=== PATIENT | male | born 1955 | race Caucasian/White ===

== ENCOUNTER 2020-01-21 09:09 | Inpatient (IN) | payer BC, OTHER ==
[~2020-01-21] VITALS: Ht 175.3 cm; Wt 142.9 kg
[2020-01-21] VITALS (11 sets, daily range): BP systolic 110–140; BP diastolic 63–78
[~2020-01-21 09:09] MED LIST: CLIN150C2 PO; FURO-61 PO; LEVO500T2 PO; LISI-600 PO; MELO-82 PO; POTA20PA40 PO; TOP100T PO; TOPI25TA PO
[2020-01-21] MEDS ORDERED: aspirin 81mg tab.chew PO ONE (09:15)
[2020-01-21 09:51] LABS: BASOPHILS # (AUTO) 0.1 X10'3 (0-0.2); BASOPHILS % (AUTO) 0.6 % (0-1); EOSINOPHILS # (AUTO) 0.3 X10'3 (0-0.9); EOSINOPHILS % (AUTO) 3.3 % (0-6); HEMATOCRIT 49.8 % (42.0-52.0); HEMOGLOBIN 16.7 g/dl (14.0-17.9); LYMPHOCYTES # (AUTO) 2.2 X10'3 (1.1-4.8); LYMPHOCYTES % (AUTO) 21.8 % (21-51); MEAN CORPUSCULAR HEMOGLOBIN 29.6 PG (27.0-31.0); MEAN CORPUSCULAR HGB CONC 33.6 g/dL (33.0-36.5); MONOCYTES # (AUTO) 0.7 X10'3 (0-0.9); MONOCYTES % (AUTO) 7.1 % (2-12); NEUTROPHILS # (AUTO) 6.7 X10'3 (1.8-7.7); NEUTROPHILS % (AUTO) 67.2 % (42-75); PLATELET COUNT 204 X10'3 (140-440); RED BLOOD COUNT 5.67 X10'6 (4.70-6.10); RED CELL DISTRIBUTION WIDTH 14.5 % (11.5-14.5); WHITE BLOOD COUNT 9.9 X10'3 (4.5-11.0)
[2020-01-21 10:01] LABS: ALANINE AMINOTRANSFERASE 32 U/L (12-78); ALBUMIN 3.8 G/DL (3.4-5.0); ALBUMIN/GLOBULIN RATIO 0.9 (1.1-1.5); ALKALINE PHOSPHATASE 113 IU/L (46-116); ANION GAP 8 (8-16); ASPARTATE AMINO TRANSFERASE 37 U/L (10-37); BILIRUBIN,TOTAL 0.4 MG/DL (0.1-1.0); BLOOD UREA NITROGEN 13 MG/DL (7-18); BUN/CREATININE RATIO 14.1 (5.4-32.0); CALCIUM 8.9 MG/DL (8.5-10.1); CHLORIDE 108 MMOL/L (99-107); CREATININE 0.92 MG/DL (0.60-1.10); GLUCOSE 110 MG/DL (70-104); POTASSIUM 3.9 MMOL/L (3.5-5.1); SODIUM 142 MMOL/L (135-145); TOTAL CARBON DIOXIDE 25.8 MMOL/L (24-32); eGFR 83 ML/MIN
--- NOTE | 2020-01-21 10:05 | NUR ---
critical value troponin 1.43, MD and RN aware
[2020-01-21] MEDS ORDERED: LISI40TA4 PO (10:36)
[2020-01-21] MEDS ORDERED: POTA10CA44 PO (10:36)
[2020-01-21] MEDS ORDERED: FURO20TA4 PO (10:36)
[2020-01-21] MEDS ORDERED: TOPI25TA49 PO (10:36)
[2020-01-21] MEDS ORDERED: CELE100C98 PO (10:36)
[2020-01-21] MEDS ORDERED: nitroGLYCERIN 1gm ointment UD TP ONE (11:05)
[2020-01-21] MEDS ORDERED: morphine 2 MG/ML inj. syringe IV PRN (11:55)
[2020-01-21] MEDS ORDERED: magnesium 2GM in 50ml NS 50 ML IV PRN (11:55)
[2020-01-21] MEDS ORDERED: magnesium Cl slow-release 64mg tablet PO PRN (11:55)
[2020-01-21] MEDS ORDERED: potassium CL 10mEq/100ml bag 100 ML IV PRN ×2 (11:55)
[2020-01-21] MEDS ORDERED: magnesium 4gm in 100ml NS 100 ML IV PRN (11:55)
[2020-01-21] MEDS ORDERED: ondansetron/PF 4mg/2ml inj IV PRN ×2 (11:55→15:15)
[2020-01-21] MEDS ORDERED: acetaminophen 325mg tablet PO PRN (11:55)
[2020-01-21] MEDS ORDERED: potassium Cl 20 mEq SR tablet PO PRN ×2 (11:55)
[2020-01-21] MEDS ORDERED: heparin 25,000 UNIT/250ml bag 250 ML IV SCH ×2 (11:56→12:06)
[2020-01-21] MEDS ORDERED: heparin 10,000 units/1 ML INJ IV PRN (12:00)
[2020-01-21] MEDS ORDERED: heparin 10,000 units/1 ML INJ IV ONE ×2 (12:00→12:05)
[2020-01-21 12:28] LABS: PARTIAL THROMBOPLASTIN TIME 31 SECONDS (22-32)
[2020-01-21] MEDS ORDERED: metoprolol tartrate 50mg tablet PO SCH (12:30)
[2020-01-21] MEDS ORDERED: metoprolol tartrate 25mg tablet PO SCH (12:48)
[2020-01-21] MEDS: atorvastatin 20mg tablet PO SCH (12:51)
[2020-01-21] MEDS: metoprolol tartrate 25mg tablet PO SCH ×2 (12:55→20:51)
[2020-01-21] MEDS ORDERED: fentaNYL/PF 50MCG/1 ML 2ML syringe ONE (13:01)
[2020-01-21] MEDS ORDERED: heparin 1,000unit/ml 10ml vial 10 ML ONE (13:01)
[2020-01-21] MEDS ORDERED: midazolam 2 mg/2 ml injection ONE (13:01)
[2020-01-21] MEDS ORDERED: LIDOcaine 1% (10mg/ml)w/preservative injection 20ml MDV ONE (13:01)
[2020-01-21] MEDS ORDERED: proCHLORperazine 10 MG/2 ml inj ONE (13:01)
[2020-01-21] MEDS ORDERED: verapamil 2.5 mg/ml inj IV ONE (13:01)
[2020-01-21] MEDS ORDERED: nitroGLYCERIN-Tridil 50MG/D5W 250 ML IV ONE (13:02)
[2020-01-21] MEDS ORDERED: iohexol 350MG/ML 100ml bottle IV ONE ×3 (13:02→14:14)
[2020-01-21] MEDS ORDERED: ticagrelor 90mg tablet ONE (14:01)
[2020-01-21] MEDS: NORMAL SALINE IV SCH ×2 (15:00→19:55)
[2020-01-21] MEDS ORDERED: HYDROcodone/acetaminophen 10/325mg tab PO PRN (15:15)
[2020-01-21] MEDS ORDERED: nitroGLYCERIN 0.4mg SUBLingual tab SL PRN (15:15)
[2020-01-21] MEDS ORDERED: proCHLORperazine 10 MG/2 ml inj IV PRN (15:15)
[2020-01-21] MEDS ORDERED: HYDROcodone/acetaminophen 5mg/325mg tablet PO PRN (15:15)
[2020-01-21] MEDS ORDERED: OXAZEpam 15mg capsule PO PRN (15:15)
[2020-01-21 15:17] LABS: CHOL/HDL RATIO 4.8 (0.00-4.99); CHOLESTEROL 160 MG/DL (0-200); HDL CHOLESTEROL 33 MG/DL (35-60); LDL CHOLESTEROL 111 MG/DL (50-100); TRIGLYCERIDES 151 MG/DL (20-135)
--- NOTE | 2020-01-21 15:28 | NUR ---
Received patient directly from [employer]. Radial vascular compression band to right wrist. Site clean and dry. Fluids running at 100 ml/hr per MD orders. Will continue to monitor.
--- NOTE | 2020-01-21 16:35 | NUR ---
PAGER ID: [phone] MESSAGE: Re: Celestino Muhammad [phone] Mufti mendoza discharge [facility]. S/P Cath. If approved by you. Please advise. Thank you. Elizabeth X [phone] Perez, patient to stay the night for observation
--- NOTE | 2020-01-21 18:10 | NUR ---
Patient in room PCU 3028. I have received report from FRANCESCO Medley and had the opportunity to ask questions and assume patient care.
--- NOTE | 2020-01-21 18:48 | NUR ---
Problems reprioritized. Patient report given, questions answered & plan of care reviewed with FRANCESCO Garcia.
[2020-01-21] MEDS: K and/or MAG REPLACEMENT MC SCH (20:00)
[2020-01-21] MEDS: ticagrelor 90mg tablet PO SCH (20:51)
[2020-01-21] MEDS: topiramate 25mg tablet PO SCH (21:12)
[2020-01-21] MEDS: furosemide 40mg/4ml inj IV SCH (22:14)
[2020-01-22 03:00] VITALS: BP 115/63
[2020-01-22 05:59] LABS: BASOPHILS % (AUTO) 0.2 % (0-1); EOSINOPHILS # (AUTO) 0.3 X10'3 (0-0.9); EOSINOPHILS % (AUTO) 2.7 % (0-6); HEMATOCRIT 43.6 % (42.0-52.0); HEMOGLOBIN 14.4 g/dl (14.0-17.9); LYMPHOCYTES # (AUTO) 1.8 X10'3 (1.1-4.8); LYMPHOCYTES % (AUTO) 16.1 % (21-51); MEAN CORPUSCULAR HEMOGLOBIN 29.1 PG (27.0-31.0); MEAN CORPUSCULAR VOLUME 88.1 FL (78-98); MEAN PLATELET VOLUME 11.5 FL (7.4-10.4); MONOCYTES % (AUTO) 9.1 % (2-12); NEUTROPHILS # (AUTO) 8.1 X10'3 (1.8-7.7); NEUTROPHILS % (AUTO) 71.9 % (42-75); PLATELET COUNT 193 X10'3 (140-440); RED BLOOD COUNT 4.95 X10'6 (4.70-6.10); RED CELL DISTRIBUTION WIDTH 14.5 % (11.5-14.5); WHITE BLOOD COUNT 11.3 X10'3 (4.5-11.0)
--- NOTE | 2020-01-22 06:01 | NUR ---
Problems reprioritized. Patient report given, questions answered & plan of care reviewed with FRANCESCO Medley.
[2020-01-22 06:21] LABS: ALBUMIN 3.2 G/DL (3.4-5.0); ANION GAP 10 (8-16); BLOOD UREA NITROGEN 11 MG/DL (7-18); BUN/CREATININE RATIO 12.2 (5.4-32.0); CALCIUM 8.4 MG/DL (8.5-10.1); CHLORIDE 107 MMOL/L (99-107); CHOL/HDL RATIO 4.8 (0.00-4.99); CHOLESTEROL 133 MG/DL (0-200); GLUCOSE 96 MG/DL (70-104); HDL CHOLESTEROL 28 MG/DL (35-60); LDL CHOLESTEROL 89 MG/DL (50-100); MAGNESIUM 1.9 MG/DL (1.5-2.4); POTASSIUM 3.9 MMOL/L (3.5-5.1); SODIUM 141 MMOL/L (135-145); TOTAL CARBON DIOXIDE 24.3 MMOL/L (24-32); TRIGLYCERIDES 166 MG/DL (20-135); eGFR 85 ML/MIN
--- NOTE | 2020-01-22 06:30 | NUR ---
Patient in room PCU 3028. I have received report from Radha MAYA and had the opportunity to ask questions and assume patient care.
[2020-01-22 06:52] LABS: LARGE PLATELETS FEW; PLATELET ESTIMATE NORMAL
[2020-01-22 07:00] VITALS: BP 131/71
[2020-01-22] MEDS: K and/or MAG REPLACEMENT MC SCH (08:00)
[2020-01-22] MEDS ORDERED: lisinopril 20mg tablet PO SCH (08:00)
[2020-01-22] MEDS: topiramate 25mg tablet PO SCH (08:10)
[2020-01-22] MEDS: furosemide 40mg/4ml inj IV SCH (08:11)
[2020-01-22] MEDS: ticagrelor 90mg tablet PO SCH (08:12)
[2020-01-22 08:13] VITALS: BP_SYST 131
[2020-01-22] MEDS: metoprolol tartrate 25mg tablet PO SCH (08:13)
[2020-01-22] MEDS: atorvastatin 20mg tablet PO SCH (08:13)
[2020-01-22] MEDS ORDERED: aspirin 81mg tab.chew PO SCH (08:30)
--- NOTE | 2020-01-22 10:00 | NUR ---
AMB 600 FEET ON RA WITH SBA. SLIGHT SOB NOTED, DENIES CHEST PAIN.
[2020-01-22] MEDS ORDERED: ASPI-1265 PO (10:14)
[2020-01-22] MEDS ORDERED: ATOR20TA66 PO (10:14)
[2020-01-22] MEDS ORDERED: TICA90TA PO (10:14)
[2020-01-22] MEDS ORDERED: METO-395 PO (10:14)
--- NOTE | 2020-01-22 11:45 | NUR ---
Patient stable for discharge per MD. Education and discharge instructions provided to patient. All questions and concerns addressed. New medications faxed to [facility] [address]. Called and spoke with Dr. Murphy office, per staff, they will call and schedule with patient post discharge. PIV removed from right arm, catheter intact. Tele monitor removed and returned to outbound telemarketer. Patient transported off unit via wheel chair by staff to private vehicle.
== END 2020-01-22 11:45 | disposition home or self-care (01) | DRG 247 ==
LOC: ER 09:10 → ED HOLD 11:52 → PCU 3S 14:49
PROVIDERS: ADMIT Internal Medicine; ATTEND Internal Medicine
PROC: 4A023N7 Measurement of Cardiac Sampling and Pressure, Left Heart, Percutaneous Approach (ICD-10-PCS; principal; 2020-01-21)
PROC: 027136Z Dilation of Coronary Artery, Two Arteries with Three Drug-eluting Intraluminal Devices, Percutaneous Approach (ICD-10-PCS; 2020-01-21)
PROC: B2151ZZ Fluoroscopy of Left Heart using Low Osmolar Contrast (ICD-10-PCS; 2020-01-21)
PROC: B2111ZZ Fluoroscopy of Multiple Coronary Arteries using Low Osmolar Contrast (ICD-10-PCS; 2020-01-21)
DX: I21.4 Non-ST elevation (NSTEMI) myocardial infarction (principal); I50.32 Chronic diastolic (congestive) heart failure; Z68.42 Body mass index [BMI] 45.0-49.9, adult; E78.5 Hyperlipidemia, unspecified; E66.01 Morbid (severe) obesity due to excess calories; E78.00 Pure hypercholesterolemia, unspecified; I11.0 Hypertensive heart disease with heart failure; Z87.891 Personal history of nicotine dependence
CPT/HCPCS: 93306; 93458; 99285; C9600; 36415; 71045; 80048; 80053; 80061; 83735; 83880; 84484; 85025; 85610; 85730; 87081; 93005; 99152; 99153; A4620; C1725; C1751; C1769; C1874; C1894; G0378; J0780; J1644; J1940; J2001; J2250; J3010; J3490; J7030; Q9967

== ENCOUNTER 2023-10-31 09:15 | Inpatient (IN) | payer MEDICARE, OTHER ==
[~2023-10-31] VITALS: Ht 175.3 cm; Wt 134.7 kg
[~2023-10-31 09:15] MED LIST changes: +ASPI-1265 PO; +ATOR20TA PO; +CELE-193 PO; -CLIN150C2 PO; +FURO-150 PO; -FURO-61 PO; -LEVO500T2 PO; -LISI-600 PO; +LISI40TA13 PO; -MELO-82 PO; +METO-384 PO; +NITR0.4T51 SL; +POTA-192 PO; -POTA20PA40 PO; +TICA90TA2 PO; -TOP100T PO; -TOPI25TA PO; +TOPI25TA15 PO
[2023-10-31] MEDS ORDERED: aspirin 81mg tab.chew PO ONE (10:10)
[2023-10-31] MEDS ORDERED: nitroGLYCERIN 0.4mg SUBLingual tab SL PRN (10:10)
[2023-10-31 10:41] LABS: BASOPHILS % (AUTO) 0.2 % (0-1); EOSINOPHILS # (AUTO) 0.2 X10'3 (0-0.9); EOSINOPHILS % (AUTO) 0.9 % (0-6); HEMATOCRIT 52.1 % (42.0-52.0); LYMPHOCYTES # (AUTO) 2.7 X10'3 (1.1-4.8); LYMPHOCYTES % (AUTO) 15.8 % (21-51); MEAN CORPUSCULAR HEMOGLOBIN 29.5 PG (27.0-31.0); MEAN CORPUSCULAR HGB CONC 32.7 g/dL (33.0-36.5); MEAN CORPUSCULAR VOLUME 90.3 FL (78-98); MEAN PLATELET VOLUME 11.1 FL (7.4-10.4); MONOCYTES # (AUTO) 1.3 X10'3 (0-0.9); MONOCYTES % (AUTO) 7.9 % (2-12); NEUTROPHILS # (AUTO) 12.8 X10'3 (1.8-7.7); NEUTROPHILS % (AUTO) 75.2 % (42-75); PLATELET COUNT 233 X10'3 (140-440); RED BLOOD COUNT 5.77 X10'6 (4.70-6.10); RED CELL DISTRIBUTION WIDTH 14.8 % (11.5-14.5); WHITE BLOOD COUNT 17.1 X10'3 (4.5-11.0)
[2023-10-31 10:44] LABS: BILIRUBIN,URINE NEGATIVE (Neg); CLARITY,URINE CLEAR (Clear); COLOR,URINE YELLOW (Yellow); GLUCOSE, URINE NEGATIVE (Neg); KETONES,URINE NEGATIVE (Neg); LEUKOCYTE ESTERASE ,URINE NEGATIVE (Neg); NITRITES, URINE NEGATIVE (Neg); OCCULT BLOOD,URINE TRACE-INTACT (Neg); PROTEIN,URINE TRACE mg/dl (Neg); UROBILINOGEN,URINE 0.2 E.U/dL (0.2-1.0)
[2023-10-31] MEDS ORDERED: diltiazem 5mg/ml 5ml inj. IV ONE ×2 (10:45→13:35)
[2023-10-31] MEDS ORDERED: furosemide 10 MG/1 ML 10ml inj IV ONE (10:45)
[2023-10-31 10:57] LABS: UA COLLECTION TYPE CLN CATCH MIDSTREAM
[2023-10-31 11:00] LABS: BACTERIA,URINE NONE SEEN /HPF (Neg); RBC,URINE 0-2 /HPF (0-2); SQUAMOUS EPITHELIAL CELL,UR NONE SEEN /LPF (FEW); WBC,URINE 0-4 /HPF (0-4)
[2023-10-31 11:04] LABS: ALANINE AMINOTRANSFERASE 119 U/L (12-78); ALBUMIN 3.4 G/DL (3.4-5.0); ALKALINE PHOSPHATASE 62 IU/L (46-116); ANION GAP 9 (8-16); ASPARTATE AMINO TRANSFERASE 48 U/L (10-37); BILIRUBIN,TOTAL 0.6 MG/DL (0.1-1.0); BLOOD UREA NITROGEN 17 MG/DL (7-18); BUN/CREATININE RATIO 19.8 (10.0-20.0); CALCIUM 8.6 MG/DL (8.5-10.1); CHLORIDE 106 MMOL/L (99-107); CREATININE 0.86 MG/DL (0.60-1.10); GLUCOSE 160 MG/DL (70-104); POTASSIUM 4.3 MMOL/L (3.5-5.1); SODIUM 142 MMOL/L (135-145); TOTAL CARBON DIOXIDE 27.2 MMOL/L (24-32); TOTAL PROTEIN 6.7 G/DL (6.4-8.2); eCRCL 83 ML/MIN; eGFR 89 ML/MIN
[2023-10-31 11:08] LABS: PRO BRAIN NATRIURETIC PEPTIDE 1615 PG/ML (0-125)
[2023-10-31] MEDS ORDERED: APIX5TAB3 PO (11:13)
[2023-10-31] MEDS ORDERED: METO-467 PO (11:14)
[2023-10-31 11:37] LABS: D-DIMER 1.03 MG/L FEU (0-0.50)
[2023-10-31] MEDS ORDERED: metoprolol tartrate 1mg/ml inj IV ONE (12:05)
[2023-10-31 12:14] LABS: TOTAL CELLS COUNTED 100
[2023-10-31 12:15] LABS: PLATELET ESTIMATE NORMAL
[2023-10-31 12:16] LABS: GIANT PLATELET FEW; LARGE PLATELETS FEW
[2023-10-31] MEDS ORDERED: iohexol 350MG/ML 100ml bottle IV ONE (12:33)
[2023-10-31 13:22] LABS: APTT 29 SECONDS (22-32); INR 1.1 INR; PROTHROMBIN TIME 11.8 SECONDS (9.0-12.0)
[2023-10-31] MEDS ORDERED: magnesium hydroxide 30ml (MOM) UD suspension PO PRN (13:55)
[2023-10-31] MEDS ORDERED: magnesium 2GM in 50ml NS 50 ML IV PRN (13:55)
[2023-10-31] MEDS ORDERED: HYDROmorphone inj. 0.5 MG/0.5 ML DISP.SYRIN IV PRN (13:55)
[2023-10-31] MEDS ORDERED: ondansetron/PF 4mg/2ml inj IV PRN (13:55)
[2023-10-31] MEDS ORDERED: acetaminophen 325mg tablet PO PRN ×2 (13:55)
[2023-10-31] MEDS ORDERED: mag hydrox/Alum hydrox/simeth 30ml oral suspension PO PRN (13:55)
[2023-10-31] MEDS ORDERED: potassium Cl 40MEQ/1/2NS 520ml 520 ML IV PRN (13:55)
[2023-10-31] MEDS ORDERED: diltiazem-NS 100mg/100ml 100 ML IV SCH (13:55)
[2023-10-31] MEDS ORDERED: potassium Cl 20 mEq SR tablet PO PRN ×2 (13:55)
[2023-10-31] MEDS ORDERED: HYDROcodone/acetaminophen 5mg/325mg tablet PO PRN (13:55)
[2023-10-31] MEDS ORDERED: PERFLUTREN PROTEIN-A MICROSPHR (Optison) 0.22 MG/ML 3ML VIAL IV ONE (13:55)
[2023-10-31] MEDS ORDERED: magnesium 4gm in 100ml NS 100 ML IV PRN (13:55)
[2023-10-31] MEDS ORDERED: HYDROmorphone/PF 0.2 MG/ML SYRINGE IV PRN (13:55)
[2023-10-31] MEDS ORDERED: HYDROcodone/acetaminophen 10/325mg tab PO PRN (13:55)
[2023-10-31] MEDS ORDERED: magnesium Cl slow-release 64mg tablet PO PRN (13:55)
[2023-10-31] MEDS ORDERED: FURO-150 PO (15:27)
[2023-10-31 17:05] LABS: CHOL/HDL RATIO 3.3 (0.00-4.99); CHOLESTEROL 153 MG/DL (0-200); HDL CHOLESTEROL 46 MG/DL (35-60); LDL CHOLESTEROL 83 MG/DL (50-100); THYROID STIMULATING HORMONE 1.62 ulU/ml (0.34-4.50); TRIGLYCERIDES 122 MG/DL (20-135)
[2023-10-31 17:09] LABS: HEMOGLOBIN A1C 6.5 % (4.5-6.2)
[2023-10-31] MEDS ORDERED: amiodarone 150mg/dext, iso-os 100 ML IV ONE (17:50)
[2023-10-31] MEDS ORDERED: metoprolol tartrate 50mg tablet PO ONE (18:10)
[2023-10-31] MEDS: amiodarone/D5 360MG/200ML BAG 200 ML IV SCH (18:39)
[2023-10-31] MEDS: CefTRIAXone/D5W-Rocephin 1gm 50 ML IV SCH (19:17)
[2023-10-31] MEDS: metoprolol tartrate 50mg tablet PO SCH (20:00)
[2023-10-31] MEDS: K and/or MAG REPLACEMENT MC SCH (20:00)
[2023-10-31] MEDS: apixaban 5mg tablet PO SCH (20:03)
[2023-10-31] MEDS: docusate sod 100mg capsule PO SCH (20:03)
[2023-10-31] MEDS: furosemide 40mg/4ml inj IV SCH (20:04)
[2023-10-31 22:41] VITALS: BP 128/84; PULSE 67; RESP 19; TEMP 98.5; O2SAT 95
[2023-10-31 23:39] VITALS: RESP 17; O2SAT 96
[2023-11-01] VITALS (16 sets, daily range): BP systolic 118–151; BP diastolic 82–122; PULSE 101–143; RESP 10–25; TEMP 97.5–98.7; O2SAT 94–98
[2023-11-01] MEDS: amiodarone/D5 360MG/200ML BAG 200 ML IV SCH ×3 (00:07→21:17)
[2023-11-01] MEDS: docusate sod 100mg capsule PO SCH ×2 (08:00→21:10)
[2023-11-01] MEDS: CefTRIAXone/D5W-Rocephin 1gm 50 ML IV SCH (08:00)
[2023-11-01] MEDS: furosemide 40mg/4ml inj IV SCH ×2 (08:00→21:09)
[2023-11-01] MEDS: K and/or MAG REPLACEMENT MC SCH ×2 (08:00→20:00)
[2023-11-01] MEDS: metoprolol tartrate 50mg tablet PO SCH ×2 (08:00→21:15)
[2023-11-01] MEDS ORDERED: metoprolol tartrate 50mg tablet PO ONE (09:05)
[2023-11-01 09:41] LABS: APTT 23 SECONDS (22-32); INR 1.1 INR
[2023-11-01 09:48] LABS: PROTHROMBIN TIME 11.3 SECONDS (9.0-12.0)
[2023-11-01] MEDS: apixaban 5mg tablet PO SCH ×2 (10:35→21:10)
[2023-11-01 12:23] LABS: ALANINE AMINOTRANSFERASE 95 U/L (12-78); ALBUMIN 3.1 G/DL (3.4-5.0); ALBUMIN/GLOBULIN RATIO 0.9 (1.1-1.5); ALKALINE PHOSPHATASE 60 IU/L (46-116); ANION GAP 10 (8-16); ASPARTATE AMINO TRANSFERASE 36 U/L (10-37); BILIRUBIN,TOTAL 0.4 MG/DL (0.1-1.0); BLOOD UREA NITROGEN 16 MG/DL (7-18); BUN/CREATININE RATIO 19.5 (10.0-20.0); CHLORIDE 103 MMOL/L (99-107); CREATININE 0.82 MG/DL (0.60-1.10); GLUCOSE 136 MG/DL (70-104); MAGNESIUM 2.2 MG/DL (1.5-2.4); PHOSPHORUS 4.6 MG/DL (2.3-4.5); SODIUM 141 MMOL/L (135-145); TOTAL CARBON DIOXIDE 28.2 MMOL/L (24-32); TOTAL PROTEIN 6.6 G/DL (6.4-8.2); eCRCL 87 ML/MIN; eGFR > 90 ML/MIN
[2023-11-01] MEDS ORDERED: insulin Lispro (HumaLOG) vial - multi-dose SQ SCH (13:55)
[2023-11-01] MEDS ORDERED: DEXTROSE 15 GM of carb/4 tabs (each vial/BOTTLE has 4 tablets) PO PRN ×2 (13:55)
[2023-11-01] MEDS ORDERED: glucagon, human recombinant 1mg kit SUBCUT PRN (13:55)
[2023-11-01] MEDS ORDERED: dextrose 50%-water 50ml dispensing syringe IV PRN ×2 (13:55)
[2023-11-01] MEDS ORDERED: nitroGLYCERIN 0.4mg SUBLingual tab SL PRN (14:00)
[2023-11-01] MEDS: insulin glargine (Lantus) pen - multi-dose SQ SCH (21:00)
[2023-11-01] MEDS: atorvastatin 20mg tablet PO SCH (21:16)
[2023-11-01] MEDS: lisinopril 20mg tablet PO SCH (21:16)
[2023-11-02] VITALS (11 sets, daily range): BP systolic 115–151; BP diastolic 84–105; PULSE 83–126; RESP 12–21; TEMP 97.3–97.9; O2SAT 94–96
[2023-11-02] MEDS: K and/or MAG REPLACEMENT MC SCH ×2 (08:00→20:00)
[2023-11-02 08:09] LABS: APTT 28 SECONDS (22-32); INR 1.1 INR; PROTHROMBIN TIME 11.4 SECONDS (9.0-12.0)
[2023-11-02 08:16] LABS: BASOPHILS # (AUTO) 0.1 X10'3 (0-0.2); BASOPHILS % (AUTO) 0.5 % (0-1); EOSINOPHILS # (AUTO) 0.2 X10'3 (0-0.9); EOSINOPHILS % (AUTO) 1.3 % (0-6); HEMATOCRIT 52.5 % (42.0-52.0); LYMPHOCYTES # (AUTO) 2.7 X10'3 (1.1-4.8); LYMPHOCYTES % (AUTO) 16.6 % (21-51); MEAN CORPUSCULAR HEMOGLOBIN 29.2 PG (27.0-31.0); MEAN CORPUSCULAR HGB CONC 32.4 g/dL (33.0-36.5); MEAN CORPUSCULAR VOLUME 90.3 FL (78-98); MEAN PLATELET VOLUME 10.7 FL (7.4-10.4); MONOCYTES # (AUTO) 1.2 X10'3 (0-0.9); MONOCYTES % (AUTO) 7.6 % (2-12); NEUTROPHILS # (AUTO) 12.1 X10'3 (1.8-7.7); PLATELET COUNT 215 X10'3 (140-440); RED BLOOD COUNT 5.81 X10'6 (4.70-6.10); RED CELL DISTRIBUTION WIDTH 14.7 % (11.5-14.5); WHITE BLOOD COUNT 16.3 X10'3 (4.5-11.0)
[2023-11-02 08:20] LABS: ALANINE AMINOTRANSFERASE 77 U/L (12-78); ALBUMIN/GLOBULIN RATIO 0.8 (1.1-1.5); ALKALINE PHOSPHATASE 61 IU/L (46-116); ANION GAP 7 (8-16); ASPARTATE AMINO TRANSFERASE 30 U/L (10-37); BILIRUBIN,TOTAL 0.6 MG/DL (0.1-1.0); BLOOD UREA NITROGEN 19 MG/DL (7-18); BUN/CREATININE RATIO 22.4 (10.0-20.0); CHLORIDE 103 MMOL/L (99-107); CREATININE 0.85 MG/DL (0.60-1.10); GLUCOSE 141 MG/DL (70-104); MAGNESIUM 2.2 MG/DL (1.5-2.4); PHOSPHORUS 4.2 MG/DL (2.3-4.5); POTASSIUM 3.6 MMOL/L (3.5-5.1); SODIUM 141 MMOL/L (135-145); TOTAL CARBON DIOXIDE 31.5 MMOL/L (24-32); TOTAL PROTEIN 6.6 G/DL (6.4-8.2); eCRCL 84 ML/MIN; eGFR 90 ML/MIN
[2023-11-02] MEDS: metoprolol tartrate 50mg tablet PO SCH ×2 (08:50→20:08)
[2023-11-02] MEDS: apixaban 5mg tablet PO SCH (08:50)
[2023-11-02] MEDS: aspirin 81mg tab.chew PO SCH (08:50)
[2023-11-02] MEDS: docusate sod 100mg capsule PO SCH ×2 (08:50→20:12)
[2023-11-02] MEDS: lisinopril 20mg tablet PO SCH (08:51)
[2023-11-02] MEDS: furosemide 40mg/4ml inj IV SCH ×2 (08:52→20:07)
[2023-11-02 09:06] LABS: OCCULT BLOOD STOOL POSITIVE (Neg)
[2023-11-02] MEDS: amiodarone/D5 360MG/200ML BAG 200 ML IV SCH (10:14)
[2023-11-02] MEDS: amiodarone 200mg tablet PO SCH ×2 (12:41→20:08)
[2023-11-02] MEDS ORDERED: PEG 3350/Na sulf,bicarb,Cl/KCl oral sol 4 liter bottle PO ONE (14:00)
[2023-11-02] MEDS: CefTRIAXone/D5W-Rocephin 1gm 50 ML IV SCH (14:32)
[2023-11-02] MEDS: insulin glargine (Lantus) pen - multi-dose SQ SCH (21:00)
[2023-11-02] MEDS: atorvastatin 20mg tablet PO SCH (21:15)
[2023-11-03] VITALS (12 sets, daily range): BP systolic 106–154; BP diastolic 57–102; PULSE 68–124; RESP 11–24; TEMP 97.5–98.1; O2SAT 93–97
[2023-11-03] MEDS ORDERED: PEG 3350/Na sulf,bicarb,Cl/KCl oral sol 4 liter bottle PO ONE (06:00)
[2023-11-03] MEDS: K and/or MAG REPLACEMENT MC SCH ×2 (08:00→20:32)
[2023-11-03] MEDS: docusate sod 100mg capsule PO SCH ×2 (08:00→20:00)
[2023-11-03] MEDS: CefTRIAXone/D5W-Rocephin 1gm 50 ML IV SCH (08:02)
[2023-11-03] MEDS: metoprolol tartrate 50mg tablet PO SCH (08:08)
[2023-11-03] MEDS: aspirin 81mg tab.chew PO SCH (08:08)
[2023-11-03] MEDS: lisinopril 20mg tablet PO SCH (08:09)
[2023-11-03] MEDS: furosemide 40mg/4ml inj IV SCH ×2 (08:09→20:34)
[2023-11-03] MEDS: amiodarone 200mg tablet PO SCH ×2 (08:09→20:24)
[2023-11-03 09:28] LABS: MEAN CORPUSCULAR HEMOGLOBIN 29.6 PG (27.0-31.0)
[2023-11-03 09:31] LABS: BASOPHILS # (AUTO) 0.1 X10'3 (0-0.2); BASOPHILS % (AUTO) 0.7 % (0-1); EOSINOPHILS # (AUTO) 0.2 X10'3 (0-0.9); EOSINOPHILS % (AUTO) 0.8 % (0-6); HEMATOCRIT 56.9 % (42.0-52.0); LYMPHOCYTES # (AUTO) 2.7 X10'3 (1.1-4.8); LYMPHOCYTES % (AUTO) 14.5 % (21-51); MEAN CORPUSCULAR HGB CONC 32.9 g/dL (33.0-36.5); MEAN CORPUSCULAR VOLUME 89.7 FL (78-98); MEAN PLATELET VOLUME 11.4 FL (7.4-10.4); MONOCYTES # (AUTO) 1.4 X10'3 (0-0.9); MONOCYTES % (AUTO) 7.7 % (2-12); NEUTROPHILS # (AUTO) 14.2 X10'3 (1.8-7.7); NEUTROPHILS % (AUTO) 76.3 % (42-75); PLATELET COUNT 232 X10'3 (140-440); RED BLOOD COUNT 6.35 X10'6 (4.70-6.10); RED CELL DISTRIBUTION WIDTH 15.1 % (11.5-14.5); WHITE BLOOD COUNT 18.6 X10'3 (4.5-11.0)
[2023-11-03 09:41] LABS: ALANINE AMINOTRANSFERASE 89 U/L (12-78); ALBUMIN 3.6 G/DL (3.4-5.0); ALKALINE PHOSPHATASE 73 IU/L (46-116); ANION GAP 7 (8-16); ASPARTATE AMINO TRANSFERASE 47 U/L (10-37); BLOOD UREA NITROGEN 18 MG/DL (7-18); BUN/CREATININE RATIO 18.2 (10.0-20.0); C-REACTIVE PROTEIN 0.15 MG/DL (0.0-0.5); CALCIUM 8.9 MG/DL (8.5-10.1); CHLORIDE 101 MMOL/L (99-107); CREATININE 0.99 MG/DL (0.60-1.10); GLUCOSE 116 MG/DL (70-104); MAGNESIUM 2.1 MG/DL (1.5-2.4); PHOSPHORUS 3.9 MG/DL (2.3-4.5); POTASSIUM 3.8 MMOL/L (3.5-5.1); SODIUM 142 MMOL/L (135-145); TOTAL CARBON DIOXIDE 33.7 MMOL/L (24-32); TOTAL PROTEIN 7.3 G/DL (6.4-8.2); eCRCL 72 ML/MIN; eGFR 75 ML/MIN
[2023-11-03 10:07] LABS: HEMOGLOBIN 18.8 g/dl (14.0-17.9)
[2023-11-03 11:07] LABS: APTT 26 SECONDS (22-32); INR 1.1 INR; PROTHROMBIN TIME 11.4 SECONDS (9.0-12.0)
[2023-11-03] MEDS ORDERED: fentaNYL/PF 50MCG/1 ML 2ML syringe ONE (14:34)
[2023-11-03] MEDS ORDERED: MIDAZolam 1 MG/ML 5ML VIAL ONE (14:34)
[2023-11-03] MEDS: atorvastatin 20mg tablet PO SCH (20:24)
[2023-11-03] MEDS: metoprolol succinate 25mg (24-HOUR) SR. Tablet PO SCH (20:25)
[2023-11-03] MEDS: insulin glargine (Lantus) pen - multi-dose SQ SCH (21:00)
[2023-11-04 02:00] VITALS: BP 109/71; PULSE 93; RESP 20; TEMP 97.8; O2SAT 95
[2023-11-04 06:00] VITALS: BP 132/91; PULSE 114; RESP 15; TEMP 97.9; O2SAT 94
[2023-11-04 07:02] LABS: BASOPHILS # (AUTO) 0.1 X10'3 (0-0.2); BASOPHILS % (AUTO) 0.3 % (0-1); EOSINOPHILS # (AUTO) 0.1 X10'3 (0-0.9); EOSINOPHILS % (AUTO) 0.9 % (0-6); HEMATOCRIT 53.5 % (42.0-52.0); HEMOGLOBIN 17.7 g/dl (14.0-17.9); LYMPHOCYTES # (AUTO) 2.8 X10'3 (1.1-4.8); LYMPHOCYTES % (AUTO) 17.5 % (21-51); MEAN CORPUSCULAR HEMOGLOBIN 29.5 PG (27.0-31.0); MEAN CORPUSCULAR HGB CONC 33.1 g/dL (33.0-36.5); MEAN PLATELET VOLUME 11.2 FL (7.4-10.4); MONOCYTES # (AUTO) 1.1 X10'3 (0-0.9); MONOCYTES % (AUTO) 7.1 % (2-12); NEUTROPHILS # (AUTO) 11.9 X10'3 (1.8-7.7); NEUTROPHILS % (AUTO) 74.2 % (42-75); PLATELET COUNT 226 X10'3 (140-440); RED BLOOD COUNT 6.01 X10'6 (4.70-6.10); RED CELL DISTRIBUTION WIDTH 14.6 % (11.5-14.5); WHITE BLOOD COUNT 16.1 X10'3 (4.5-11.0)
[2023-11-04 07:13] LABS: INR 1.1 INR; PROTHROMBIN TIME 11.7 SECONDS (9.0-12.0)
[2023-11-04 07:24] LABS: ALANINE AMINOTRANSFERASE 80 U/L (12-78); ALBUMIN 3.2 G/DL (3.4-5.0); ALKALINE PHOSPHATASE 65 IU/L (46-116); ANION GAP 9 (8-16); ASPARTATE AMINO TRANSFERASE 32 U/L (10-37); BILIRUBIN,TOTAL 0.9 MG/DL (0.1-1.0); BLOOD UREA NITROGEN 17 MG/DL (7-18); BUN/CREATININE RATIO 19.1 (10.0-20.0); CALCIUM 8.3 MG/DL (8.5-10.1); CHLORIDE 102 MMOL/L (99-107); CREATININE 0.89 MG/DL (0.60-1.10); GLUCOSE 125 MG/DL (70-104); MAGNESIUM 2.1 MG/DL (1.5-2.4); PHOSPHORUS 3.8 MG/DL (2.3-4.5); POTASSIUM 3.5 MMOL/L (3.5-5.1); SODIUM 141 MMOL/L (135-145); TOTAL CARBON DIOXIDE 30.3 MMOL/L (24-32); TOTAL PROTEIN 6.4 G/DL (6.4-8.2); eCRCL 81 ML/MIN; eGFR 85 ML/MIN
[2023-11-04 08:00] VITALS: RESP 15; O2SAT 94
[2023-11-04] MEDS: docusate sod 100mg capsule PO SCH (08:00)
[2023-11-04] MEDS: CefTRIAXone/D5W-Rocephin 1gm 50 ML IV SCH (10:24)
[2023-11-04] MEDS: furosemide 40mg/4ml inj IV SCH (10:24)
[2023-11-04] MEDS: aspirin 81mg tab.chew PO SCH (10:24)
[2023-11-04] MEDS: metoprolol succinate 25mg (24-HOUR) SR. Tablet PO SCH (10:26)
[2023-11-04 10:27] VITALS: BP_SYST 132; PULSE 114
[2023-11-04] MEDS: lisinopril 20mg tablet PO SCH (10:27)
[2023-11-04] MEDS: amiodarone 200mg tablet PO SCH (10:27)
[2023-11-04] MEDS ORDERED: LISI20TA28 PO (13:15)
[2023-11-04] MEDS ORDERED: AMI200T PO (13:15)
[2023-11-04] MEDS ORDERED: METO-395 PO (13:15)
[2023-11-04] MEDS ORDERED: METF-1203 PO (13:16)
== END 2023-11-04 14:04 | disposition home or self-care (01) | DRG 377 ==
LOC: ER 09:16 → ED HOLD 13:59 → PCU 3S 22:30
PROVIDERS: ADMIT Family Medicine; ATTEND Family Medicine
PROC: 0DBK8ZX Excision of Ascending Colon, Via Natural or Artificial Opening Endoscopic, Diagnostic (ICD-10-PCS; principal; 2023-11-03)
PROC: 0DBN8ZX Excision of Sigmoid Colon, Via Natural or Artificial Opening Endoscopic, Diagnostic (ICD-10-PCS; 2023-11-03)
PROC: 0DBP8ZX Excision of Rectum, Via Natural or Artificial Opening Endoscopic, Diagnostic (ICD-10-PCS; 2023-11-03)
DX: K57.91 Diverticulosis of intestine, part unspecified, without perforation or abscess with bleeding (principal); I50.23 Acute on chronic systolic (congestive) heart failure; J18.9 Pneumonia, unspecified organism; Z68.41 Body mass index [BMI] 40.0-44.9, adult; K64.8 Other hemorrhoids; I11.0 Hypertensive heart disease with heart failure; I48.91 Unspecified atrial fibrillation; R73.03 Prediabetes; I25.10 Atherosclerotic heart disease of native coronary artery without angina pectoris; D72.829 Elevated white blood cell count, unspecified; K63.5 Polyp of colon; K62.1 Rectal polyp; G47.33 Obstructive sleep apnea (adult) (pediatric); Z20.822 Contact with and (suspected) exposure to COVID-19; E78.00 Pure hypercholesterolemia, unspecified; Z79.899 Other long term (current) drug therapy; Z79.01 Long term (current) use of anticoagulants; I25.2 Old myocardial infarction; Z79.82 Long term (current) use of aspirin; Z95.5 Presence of coronary angioplasty implant and graft; Z88.8 Allergy status to other drugs, medicaments and biological substances; Z82.49 Family history of ischemic heart disease and other diseases of the circulatory system
CPT/HCPCS: 36415; 45380; 45385; 71045; 71275; 80053; 80061; 81001; 82272; 82948; 83036; 83605; 83735; 83880; 84100; 84145; 84443; 84484; 85007; 85025; 85379; 85610; 85730; 86140; 87040; 87081; 87502; 87503; 87811; 93005; 93306; 99152; 99153; 99285; A4349; A4620; C1889; G0378; J0282; J0696; J1815; J1940; J2250; J3010; J3490; J7030; J7040; Q9967

== ENCOUNTER 2023-12-25 11:30 | Emergency (ER) | payer MEDICARE ==
[~2023-12-25] VITALS: Ht 172.7 cm; Wt 130.4 kg
[~2023-12-25 11:30] MED LIST changes: +AMI200T PO; +APIX5TAB3 PO; -CELE-193 PO; +LISI20TA28 PO; -LISI40TA13 PO; -METO-384 PO; +METO-395 PO; -TICA90TA2 PO; -TOPI25TA15 PO
[2023-12-25] MEDS: LIDOcaine 1% w/epiNEPHrine 1:200,000 30ml vial SQ ONE (12:32)
[2023-12-25] MEDS: LIDOcaine 1% W/epiNEPHrine 1:100,000 20ml vial SQ ONE (12:32)
[2023-12-25] MEDS: TETanus/Pertussis (Acell)/Diphther VAC/PF (Tdap-Adult) 0.5ml syringe IMVAC ONE (12:52)
[2023-12-25] MEDS: cephalexin 250mg capsule PO ONE (13:05)
[2023-12-25] MEDS ORDERED: AMOX-580 PO (13:39)
[2023-12-25 13:51] VITALS: BP 176/98; PULSE 95; RESP 14; TEMP 98.6; O2SAT 99
== END 2023-12-25 13:53 | disposition home or self-care (01) ==
LOC: ER 11:31
DX: S61.412A Laceration without foreign body of left hand, initial encounter (principal); Z88.8 Allergy status to other drugs, medicaments and biological substances; Z79.899 Other long term (current) drug therapy; W26.0XXA Contact with knife, initial encounter; Y93.89 Activity, other specified; Y92.89 Other specified places as the place of occurrence of the external cause; Y99.8 Other external cause status
CPT/HCPCS: 12041; 73120; 90471; 90715; 99284; J3490; 12001; 99283

== ENCOUNTER 2024-01-24 08:22 | Day surgery (SDC) | payer MEDICARE ==
[2024-01-23 09:18] LABS: BASOPHILS % (AUTO) 0.2 % (0-1); EOSINOPHILS # (AUTO) 0.1 X10'3 (0-0.9); EOSINOPHILS % (AUTO) 1.1 % (0-6); HEMATOCRIT 47.5 % (42.0-52.0); LYMPHOCYTES % (AUTO) 15.2 % (21-51); MEAN CORPUSCULAR HEMOGLOBIN 30.4 PG (27.0-31.0); MEAN CORPUSCULAR HGB CONC 33.6 g/dL (33.0-36.5); MEAN CORPUSCULAR VOLUME 90.3 FL (78-98); MEAN PLATELET VOLUME 10.8 FL (7.4-10.4); MONOCYTES # (AUTO) 0.9 X10'3 (0-0.9); MONOCYTES % (AUTO) 6.9 % (2-12); NEUTROPHILS % (AUTO) 76.6 % (42-75); PLATELET COUNT 191 X10'3 (140-440); RED BLOOD COUNT 5.26 X10'6 (4.70-6.10); RED CELL DISTRIBUTION WIDTH 16.8 % (11.5-14.5); WHITE BLOOD COUNT 13.1 X10'3 (4.5-11.0)
[2024-01-23 09:27] LABS: ALBUMIN 3.3 G/DL (3.4-5.0); ANION GAP 8 (8-16); BLOOD UREA NITROGEN 14 MG/DL (7-18); BUN/CREATININE RATIO 19.2 (10.0-20.0); CALCIUM 8.6 MG/DL (8.5-10.1); CHLORIDE 109 MMOL/L (99-107); CREATININE 0.73 MG/DL (0.60-1.10); GLUCOSE 124 MG/DL (70-104); POTASSIUM 4.2 MMOL/L (3.5-5.1); SODIUM 143 MMOL/L (135-145); TOTAL CARBON DIOXIDE 25.6 MMOL/L (24-32); eGFR > 90 ML/MIN
[2024-01-23 09:53] LABS: APTT 28 SECONDS (22-32); INR 1.1 INR; PROTHROMBIN TIME 11.4 SECONDS (9.0-12.0)
[~2024-01-24] VITALS: Ht 175.3 cm; Wt 132.4 kg
[2024-01-24] VITALS (8 sets, daily range): BP systolic 99–146; BP diastolic 67–97; PULSE 56–102; RESP 14–24; TEMP 98.1; O2SAT 92–98
[2024-01-24] MEDS ORDERED: LISI40TA13 PO (09:08)
[2024-01-24] MEDS ORDERED: ASPI81TA52 PO (09:08)
[2024-01-24] MEDS ORDERED: METF-1203 PO (09:08)
[2024-01-24] MEDS ORDERED: SPIR25TA5 PO (09:08)
[2024-01-24] MEDS ORDERED: AMIO200T72 PO (09:08)
[2024-01-24] MEDS ORDERED: METO200T49 PO (09:08)
[2024-01-24] MEDS ORDERED: VITA1CAP PO (09:08)
[2024-01-24] MEDS ORDERED: METH500C6 PO (09:08)
[2024-01-24] MEDS ORDERED: CHOL100046 PO (09:08)
[2024-01-24] MEDS: normal saline 1000ml 1,000 ML IV SCH (12:25)
[2024-01-24] MEDS: MIDAZolam 1mg/ml 10ml vial IV ONE (12:25)
[2024-01-24] MEDS: fentaNYL/PF 50MCG/1 ML 2ML syringe IV ONE (12:25)
== END 2024-01-24 13:22 | disposition home or self-care (01) ==
LOC: SSTAY O 08:22
PROVIDERS: ATTEND Student in an Organized Health Care Education/Training Program
DX: I48.91 Unspecified atrial fibrillation (principal); I45.10 Unspecified right bundle-branch block; I25.2 Old myocardial infarction; I11.0 Hypertensive heart disease with heart failure; I50.9 Heart failure, unspecified; E11.9 Type 2 diabetes mellitus without complications; I25.10 Atherosclerotic heart disease of native coronary artery without angina pectoris; E78.00 Pure hypercholesterolemia, unspecified; E66.9 Obesity, unspecified; G47.33 Obstructive sleep apnea (adult) (pediatric); Z79.01 Long term (current) use of anticoagulants; Z79.82 Long term (current) use of aspirin; Z79.84 Long term (current) use of oral hypoglycemic drugs; Z79.899 Other long term (current) drug therapy; Z68.41 Body mass index [BMI] 40.0-44.9, adult; Z88.8 Allergy status to other drugs, medicaments and biological substances
CPT/HCPCS: 36415; 80048; 85025; 85610; 85730; 92960; 93005; J2250; J3010; J7030; A4620

== ENCOUNTER 2024-03-08 09:26 | Emergency (ER) | payer MEDICARE ==
[~2024-03-08] VITALS: Ht 175.3 cm; Wt 126.8 kg
[~2024-03-08 09:26] MED LIST changes: -AMI200T PO; +AMIO200T72 PO; -ASPI-1265 PO; +ASPI81TA52 PO; +CHOL100046 PO; -LISI20TA28 PO; +LISI40TA13 PO; +METF-1203 PO; +METH500C6 PO; -METO-395 PO; +METO200T37 PO; -NITR0.4T51 SL; +SPIR25TA5 PO; +VITA1CAP PO
[2024-03-08 12:57] LABS: BILIRUBIN,URINE NEGATIVE (Neg); CLARITY,URINE CLEAR (Clear); COLOR,URINE YELLOW (Yellow); GLUCOSE, URINE NEGATIVE (Neg); KETONES,URINE NEGATIVE (Neg); LEUKOCYTE ESTERASE ,URINE NEGATIVE (Neg); NITRITES, URINE NEGATIVE (Neg); OCCULT BLOOD,URINE TRACE-INTACT (Neg); PH,URINE 5.5 (4.8-8.0); PROTEIN,URINE NEGATIVE (Neg); UROBILINOGEN,URINE 0.2 E.U/dL (0.2-1.0)
[2024-03-08 13:00] LABS: UA COLLECTION TYPE CLN CATCH MIDSTREAM
[2024-03-08 13:14] LABS: BASOPHILS # (AUTO) 0.1 X10'3 (0-0.2); BASOPHILS % (AUTO) 0.5 % (0-1); EOSINOPHILS # (AUTO) 0.2 X10'3 (0-0.9); EOSINOPHILS % (AUTO) 1.3 % (0-6); HEMOGLOBIN 15.4 g/dl (14.0-17.9); LYMPHOCYTES % (AUTO) 14.4 % (21-51); MEAN CORPUSCULAR HEMOGLOBIN 30.7 PG (27.0-31.0); MEAN CORPUSCULAR HGB CONC 33.5 g/dL (33.0-36.5); MEAN CORPUSCULAR VOLUME 91.8 FL (78-98); MEAN PLATELET VOLUME 11.2 FL (7.4-10.4); MONOCYTES # (AUTO) 0.9 X10'3 (0-0.9); MONOCYTES % (AUTO) 6.9 % (2-12); NEUTROPHILS # (AUTO) 10.5 X10'3 (1.8-7.7); NEUTROPHILS % (AUTO) 76.9 % (42-75); PLATELET COUNT 209 X10'3 (140-440); RED BLOOD COUNT 5.02 X10'6 (4.70-6.10); RED CELL DISTRIBUTION WIDTH 14.3 % (11.5-14.5); WHITE BLOOD COUNT 13.7 X10'3 (4.5-11.0)
[2024-03-08] MEDS: piperacillin/tazo 3.375gm/50ml 50 ML IV ONE (13:15)
[2024-03-08 13:41] LABS: ALBUMIN 3.5 G/DL (3.4-5.0); ANION GAP 3 (8-16); BLOOD UREA NITROGEN 17 MG/DL (7-18); BUN/CREATININE RATIO 21.3 (10.0-20.0); CALCIUM 9.1 MG/DL (8.5-10.1); CHLORIDE 105 MMOL/L (99-107); GLUCOSE 108 MG/DL (70-104); POTASSIUM 4.1 MMOL/L (3.5-5.1); SODIUM 140 MMOL/L (135-145); TOTAL CARBON DIOXIDE 31.7 MMOL/L (24-32); eCRCL 88 ML/MIN; eGFR > 90 ML/MIN
[2024-03-08 13:46] LABS: ACETONE NEGATIVE (NEGATIVE)
[2024-03-08 13:54] LABS: MUCUS STRANDS MODERATE /LPF (Neg)
[2024-03-08 13:58] LABS: BACTERIA,URINE FEW /HPF (Neg); RBC,URINE 0-2 /HPF (0-2); WBC,URINE 0-4 /HPF (0-4)
[2024-03-08 13:59] LABS: SQUAMOUS EPITHELIAL CELL,UR FEW /LPF (FEW)
[2024-03-08 14:12] LABS: CAL OXALATE CRYSTALS 1+ /HPF (NEGATIVE)
[2024-03-08] MEDS ORDERED: SULF1TAB49 PO (14:58)
[2024-03-08] MEDS ORDERED: CEPH-585 PO (14:58)
[2024-03-08 15:51] VITALS: BP 133/69; PULSE 54; RESP 16; TEMP 98.1; O2SAT 98
== END 2024-03-08 15:53 | disposition home or self-care (01) ==
LOC: ER 09:26
DX: E11.621 Type 2 diabetes mellitus with foot ulcer (principal); L97.519 Non-pressure chronic ulcer of other part of right foot with unspecified severity; Z88.8 Allergy status to other drugs, medicaments and biological substances; I25.10 Atherosclerotic heart disease of native coronary artery without angina pectoris; I11.0 Hypertensive heart disease with heart failure; I50.9 Heart failure, unspecified; E78.00 Pure hypercholesterolemia, unspecified; G47.30 Sleep apnea, unspecified; Z98.890 Other specified postprocedural states
CPT/HCPCS: 71045; 73630; 80048; 81001; 82009; 83605; 83735; 84145; 85025; 87040; 93005; 96365; 99285; J2543; A6258

== ENCOUNTER 2024-06-01 08:14 | Emergency (ER) | payer MEDICARE ==
[~2024-06-01] VITALS: Ht 172.7 cm; Wt 124.0 kg
[2024-06-01 08:15] VITALS: BP 174/84; PULSE 66; RESP 16; TEMP 98.6; O2SAT 97
[2024-06-01 10:28] LABS: BASOPHILS % (AUTO) 0.3 % (0-1); EOSINOPHILS # (AUTO) 0.1 X10'3 (0-0.9); EOSINOPHILS % (AUTO) 1.3 % (0-6); HEMATOCRIT 45.2 % (42.0-52.0); HEMOGLOBIN 15.2 g/dl (14.0-17.9); LYMPHOCYTES # (AUTO) 1.9 X10'3 (1.1-4.8); LYMPHOCYTES % (AUTO) 17.4 % (21-51); MEAN CORPUSCULAR HEMOGLOBIN 30.4 PG (27.0-31.0); MEAN CORPUSCULAR HGB CONC 33.7 g/dL (33.0-36.5); MEAN CORPUSCULAR VOLUME 90.3 FL (78-98); MEAN PLATELET VOLUME 12.1 FL (7.4-10.4); MONOCYTES # (AUTO) 0.7 X10'3 (0-0.9); MONOCYTES % (AUTO) 6.8 % (2-12); NEUTROPHILS % (AUTO) 74.2 % (42-75); PLATELET COUNT 216 X10'3 (140-440); RED BLOOD COUNT 5.01 X10'6 (4.70-6.10); RED CELL DISTRIBUTION WIDTH 14.1 % (11.5-14.5); WHITE BLOOD COUNT 10.8 X10'3 (4.5-11.0)
[2024-06-01 10:53] LABS: BILIRUBIN,URINE NEGATIVE (Neg); CLARITY,URINE CLEAR (Clear); COLOR,URINE YELLOW (Yellow); GLUCOSE, URINE >=1000 mg/dl (Neg); KETONES,URINE TRACE mg/dl (Neg); LEUKOCYTE ESTERASE ,URINE NEGATIVE (Neg); NITRITES, URINE NEGATIVE (Neg); OCCULT BLOOD,URINE NEGATIVE (Neg); PH,URINE 5.5 (4.8-8.0); PROTEIN,URINE TRACE mg/dl (Neg); UROBILINOGEN,URINE 0.2 E.U/dL (0.2-1.0)
[2024-06-01 10:56] LABS: UA COLLECTION TYPE CLN CATCH MIDSTREAM
[2024-06-01 10:59] LABS: BACTERIA,URINE FEW /HPF (Neg); FINE GRANULAR CAST 0-3 /LPF (NEGATIVE); HYALINE CASTS 0-3 /LPF (NEGATIVE); MUCUS STRANDS FEW /LPF (Neg); RBC,URINE 0-2 /HPF (0-2); SQUAMOUS EPITHELIAL CELL,UR NONE SEEN /LPF (FEW); WBC,URINE 0-4 /HPF (0-4)
[2024-06-01 11:23] LABS: ALANINE AMINOTRANSFERASE 26 U/L (12-78); ALBUMIN 3.9 G/DL (3.4-5.0); ALKALINE PHOSPHATASE 78 IU/L (46-116); ANION GAP 10 (8-16); ASPARTATE AMINO TRANSFERASE 20 U/L (10-37); BILIRUBIN,TOTAL 0.4 MG/DL (0.1-1.0); BLOOD UREA NITROGEN 22 MG/DL (7-18); BUN/CREATININE RATIO 24.2 (10.0-20.0); CALCIUM 9.3 MG/DL (8.5-10.1); CHLORIDE 105 MMOL/L (99-107); CREATININE 0.91 MG/DL (0.60-1.10); GLUCOSE 96 MG/DL (70-104); POTASSIUM 4.3 MMOL/L (3.5-5.1); SODIUM 141 MMOL/L (135-145); TOTAL CARBON DIOXIDE 26.4 MMOL/L (24-32); TOTAL PROTEIN 7.8 G/DL (6.4-8.2); eCRCL 75 ML/MIN; eGFR 83 ML/MIN
[2024-06-01 11:26] LABS: PLATELET ESTIMATE NORMAL
[2024-06-01 11:27] LABS: LARGE PLATELETS MODERATE
[2024-06-01] MEDS ORDERED: CEPH-585 PO (11:38)
[2024-06-01] MEDS ORDERED: SULF1TAB49 PO (11:38)
[2024-06-01] MEDS: cephalexin 250mg capsule PO ONE (11:52)
[2024-06-01] MEDS: sulfamethoxazole/trimethoprim DS (800/160mg) tablet PO ONE (11:52)
[2024-06-01] MEDS: bacitracin 15gm ointment TP ONE (11:52)
[2024-06-01 11:55] LABS: C-REACTIVE PROTEIN < 0.05 MG/DL (0.0-0.5)
== END 2024-06-01 11:52 | disposition home or self-care (01) ==
LOC: ER 08:15
DX: L03.115 Cellulitis of right lower limb (principal); I25.10 Atherosclerotic heart disease of native coronary artery without angina pectoris; I11.0 Hypertensive heart disease with heart failure; I50.9 Heart failure, unspecified; E78.00 Pure hypercholesterolemia, unspecified; G47.30 Sleep apnea, unspecified; Z88.8 Allergy status to other drugs, medicaments and biological substances; Z79.2 Long term (current) use of antibiotics; Z79.899 Other long term (current) drug therapy; Z79.84 Long term (current) use of oral hypoglycemic drugs; Z98.61 Coronary angioplasty status
CPT/HCPCS: 36415; 80053; 81001; 84145; 85008; 85025; 86140; 99284

== ENCOUNTER 2024-06-05 14:50 | Emergency (ER) | payer MEDICARE ==
[~2024-06-05] VITALS: Ht 172.7 cm; Wt 121.2 kg
[~2024-06-05 14:50] MED LIST changes: +CEPH-585 PO; +SULF1TAB49 PO
[2024-06-05 14:55] VITALS: TEMP 98.5
[2024-06-05] MEDS: ondansetron/PF 4mg/2ml inj IV ONE (16:22)
[2024-06-05] MEDS: HYDROmorphone 1 mg/ml syringe IV ONE (16:22)
[2024-06-05] MEDS ORDERED: METH-798 PO (16:30)
[2024-06-05] MEDS ORDERED: HYDR-3972 PO (16:30)
[2024-06-05 17:01] VITALS: BP 137/68; PULSE 57; RESP 16; O2SAT 95
[2024-06-05] MEDS ORDERED: CEPH-585 PO (17:09)
== END 2024-06-05 17:22 | disposition home or self-care (01) ==
LOC: ER 14:50
DX: S33.5XXA Sprain of ligaments of lumbar spine, initial encounter (principal); S23.3XXA Sprain of ligaments of thoracic spine, initial encounter; S00.03XA Contusion of scalp, initial encounter; I25.10 Atherosclerotic heart disease of native coronary artery without angina pectoris; I50.9 Heart failure, unspecified; E78.00 Pure hypercholesterolemia, unspecified; I11.0 Hypertensive heart disease with heart failure; Z88.8 Allergy status to other drugs, medicaments and biological substances; Z79.899 Other long term (current) drug therapy; Z79.2 Long term (current) use of antibiotics; W19.XXXA Unspecified fall, initial encounter; Y93.89 Activity, other specified; Y92.89 Other specified places as the place of occurrence of the external cause; Y99.8 Other external cause status
CPT/HCPCS: 70450; 72070; 72100; 96374; 96375; 99285; J1170; J2405

== ENCOUNTER 2024-06-08 22:41 | Emergency (ER) | payer MEDICARE ==
[~2024-06-08] VITALS: Ht 172.7 cm; Wt 123.3 kg
[~2024-06-08 22:41] MED LIST changes: +HYDR-3972 PO; +METH-798 PO
[2024-06-08] MEDS ORDERED: iohexol 300mg/ml 100ml inj. ONE (23:12)
[2024-06-08 23:22] LABS: BASOPHILS # (AUTO) 0.1 X10'3 (0-0.2); EOSINOPHILS # (AUTO) 0.1 X10'3 (0-0.9); EOSINOPHILS % (AUTO) 0.6 % (0-6); HEMOGLOBIN 14.7 g/dl (14.0-17.9); LYMPHOCYTES # (AUTO) 1.8 X10'3 (1.1-4.8)
[2024-06-08 23:25] LABS: BASOPHILS % (AUTO) 0.5 % (0-1); HEMATOCRIT 44.5 % (42.0-52.0); MEAN CORPUSCULAR HEMOGLOBIN 29.8 PG (27.0-31.0); MEAN CORPUSCULAR HGB CONC 33.1 g/dL (33.0-36.5); MEAN CORPUSCULAR VOLUME 90.2 FL (78-98); MEAN PLATELET VOLUME 11.5 FL (7.4-10.4); MONOCYTES # (AUTO) 0.7 X10'3 (0-0.9); MONOCYTES % (AUTO) 7.1 % (2-12); NEUTROPHILS # (AUTO) 7.7 X10'3 (1.8-7.7); NEUTROPHILS % (AUTO) 74.8 % (42-75); PLATELET COUNT 223 X10'3 (140-440); RED BLOOD COUNT 4.94 X10'6 (4.70-6.10); RED CELL DISTRIBUTION WIDTH 14.8 % (11.5-14.5); WHITE BLOOD COUNT 10.3 X10'3 (4.5-11.0)
[2024-06-08 23:32] LABS: ANION GAP 12 (8-16); BLOOD UREA NITROGEN 37 MG/DL (7-18); BUN/CREATININE RATIO 26.6 (10.0-20.0); CALCIUM 9.3 MG/DL (8.5-10.1); CHLORIDE 106 MMOL/L (99-107); CREATININE 1.39 MG/DL (0.60-1.10); GLUCOSE 107 MG/DL (70-104); LIPASE 45 U/L (16-77); POTASSIUM 5.1 MMOL/L (3.5-5.1); SODIUM 141 MMOL/L (135-145); TOTAL CARBON DIOXIDE 23.4 MMOL/L (24-32); eCRCL 49 ML/MIN; eGFR 51 ML/MIN
[2024-06-08 23:41] LABS: ALANINE AMINOTRANSFERASE 29 U/L (12-78); ALBUMIN 3.9 G/DL (3.4-5.0); ALBUMIN/GLOBULIN RATIO 0.9 (1.1-1.5); ALKALINE PHOSPHATASE 84 IU/L (46-116); ASPARTATE AMINO TRANSFERASE 19 U/L (10-37); BILIRUBIN,TOTAL 0.4 MG/DL (0.1-1.0); TOTAL PROTEIN 8.1 G/DL (6.4-8.2)
[2024-06-09] MEDS: ondansetron/PF 4mg/2ml inj IV ONE (00:25)
[2024-06-09] MEDS: HYDROmorphone 1 mg/ml syringe IV ONE (00:30)
--- NOTE | 2024-06-09 00:51 | NUR ---
Nurse scanned and administered medications per MD order. Nurse noted medication scan did not save on eMar. Nurse charted administration mannually second nurse was at bedside during medication administration and will witness medications administered per MD orders.
--- NOTE | 2024-06-09 00:57 | NUR ---
I persoanlly witnessed FRANCESCO piña scan medications as ordered including hydromorphone. 5 rights of medication administration followed right patient, right dose, right medication, right route, and right time. Later noticed medications did not save in eMAR.
[2024-06-09 01:34] LABS: BILIRUBIN,URINE NEGATIVE (Neg); CLARITY,URINE CLEAR (Clear); COLOR,URINE STRAW (Yellow); GLUCOSE, URINE >=1000 mg/dl (Neg); KETONES,URINE NEGATIVE (Neg); LEUKOCYTE ESTERASE ,URINE NEGATIVE (Neg); NITRITES, URINE NEGATIVE (Neg); OCCULT BLOOD,URINE NEGATIVE (Neg); PROTEIN,URINE NEGATIVE (Neg); UROBILINOGEN,URINE 0.2 E.U/dL (0.2-1.0)
[2024-06-09 01:37] LABS: UA COLLECTION TYPE NON-SPECIFIED
[2024-06-09 01:51] LABS: BACTERIA,URINE FEW /HPF (Neg); SQUAMOUS EPITHELIAL CELL,UR FEW /LPF (FEW)
[2024-06-09 01:52] LABS: RBC,URINE 0-2 /HPF (0-2); WBC,URINE 0-4 /HPF (0-4)
[2024-06-09 02:47] VITALS: BP 155/85; PULSE 55; RESP 12; TEMP 98.1; O2SAT 98
== END 2024-06-09 02:53 | disposition home or self-care (01) ==
LOC: ER 22:42
DX: R10.84 Generalized abdominal pain (principal); N28.89 Other specified disorders of kidney and ureter; I25.10 Atherosclerotic heart disease of native coronary artery without angina pectoris; I11.0 Hypertensive heart disease with heart failure; I50.9 Heart failure, unspecified; E78.00 Pure hypercholesterolemia, unspecified; G47.30 Sleep apnea, unspecified; Z98.61 Coronary angioplasty status; Z88.8 Allergy status to other drugs, medicaments and biological substances; Z79.899 Other long term (current) drug therapy; Z79.84 Long term (current) use of oral hypoglycemic drugs; Z79.2 Long term (current) use of antibiotics
CPT/HCPCS: 36415; 74177; 80053; 81001; 83690; 85025; 96374; 96375; 99285; J1170; J2405; Q9967